=== PATIENT | female | born 1975 | race American Indian/Alaskan Native ===

== ENCOUNTER 2018-03-31 17:55 | Emergency (ER) | payer OTHER ==
--- OUTSIDE RECORDS SUMMARY | 2018-03-31 17:56 | XMS REPORT ---
:1975 Author Organization eClinicalWorks Care Team Providers Name Role Phone Yony Rouse Provider Role Unavailable Allergies No Known Allergies Problems Problem Type Condition Code Onset Dates Condition Status Assessment HTN (hypertension), benign I10 Active Problem Cyst of ovary, unspecified N83.209 Active laterality Problem Adult BMI 36.0-36.9 kg/sq m Z68.36 Active Problem HTN (hypertension), benign I10 Active Problem Depression with anxiety F41.8 Active Problem Low back pain M54.5 Active Problem Other chronic pain G89.29 Active Problem Primary osteoarthritis involving M15.0 Active multiple joints Problem Irregular menstrual cycle N92.6 Active Problem Endometriosis N80.9 Active Assessment Encounter for screening mammogram Z12.31 Active for malignant neoplasm of breast Assessment Other chronic pain G89.29 Active Assessment Primary osteoarthritis involving M15.0 Active multiple joints Assessment Low back pain M54.5 Active Assessment Irregular menstrual cycle N92.6 Active Assessment Depression with anxiety F41.8 Active Assessment Adult BMI 36.0-36.9 kg/sq m Z68.36 Active Assessment Medicare annual wellness visit, Z00.00 Active initial Medications Medication Code Code Instructions Start End Status Dosage System Date Date Potassium [facility] 72563286817 Oral Active 1 tab Meloxicam [facility] 21614343098 15 MG Orally Active 1 tablet Once a day Adipex-P [facility] 89368546882 37.5 MG Orally Active 1 tablet Once a day Hydrochlorothiazide [facility] 64307848373 25 MG Orally Active 1 tablet Once a day in the morning Prozac [facility] 35028242571 20 MG Orally Active 1 capsule Once a day in the morning cyclobenzaprine [facility] 0 20 once daily Active 1 tablet Hydrocodone [facility] [address]-25 Active not Bitartrate defined Vitamin B12 [facility] 67537-10419 Active not defined Vitamin C [facility] 32704030379 500 MG Orally Active not defined Results No Known Results Summary Purpose eClinicalWorks Submission
--- OUTSIDE RECORDS SUMMARY | 2018-03-31 17:56 | XMS REPORT ---
:1975 Author Organization eClinicalWorks Care Team Providers Name Role Phone Marina Rodgers Provider Role Unavailable Allergies, Adverse Reactions, Alerts Substance Reaction Event Type penicillin Info Not Available Drug Allergy Amoxicillin Info Not Available Drug Allergy Sulfa Info Not Available Drug Allergy Problems Problem Type Condition Code Onset Dates Condition Status Assessment Irregular menstrual cycle N92.6 Active Problem Cyst of ovary, unspecified N83.209 Active laterality Problem Adult BMI 36.0-36.9 kg/sq m Z68.36 Active Assessment Encounter for screening mammogram Z12.31 Active for malignant neoplasm of breast Problem HTN (hypertension), benign I10 Active Problem Depression with anxiety F41.8 Active Problem Low back pain M54.5 Active Problem Other chronic pain G89.29 Active Problem Primary osteoarthritis involving M15.0 Active multiple joints Problem Irregular menstrual cycle N92.6 Active Problem Endometriosis N80.9 Active Medications Medication Code Code Instructions Start End Status Dosage System Date Date Meloxicam [facility] 45590691791 15 MG Orally Active 1 tablet Once a day Vitamin C [facility] 78069843864 500 MG Orally Active not defined Potassium [facility] 36178902748 Oral Active 1 tab cyclobenzaprine [place] 0 20 once daily Active 1 tablet Adipex-P [facility] 85278932435 37.5 MG Orally Active 1 tablet Once a day Hydrochlorothiazide [facility] 07191207900 25 MG Orally Active 1 tablet Once a day in the morning Prozac [facility] 03149986161 20 MG Orally Active 1 capsule Once a day in the morning Vitamin B12 [facility] 98512-83159 Active not defined Hydrocodone [facility] [address]-22 Active not Bitartrate defined Results No Known Results Summary Purpose eClinicalWorks Submission
--- OUTSIDE RECORDS SUMMARY | 2018-03-31 17:56 | XMS REPORT ---
:1975 Author Organization eClinicalWorks Care Team Providers Name Role Phone Rouse, [facility] Provider Role Unavailable Allergies, Adverse Reactions, Alerts [...] N92.6 Active Problem Endometriosis N80.9 Active Assessment Adult BMI 36.0-36.9 kg/sq m Z68.36 Active Assessment Primary osteoarthritis involving M15.0 Active multiple joints Assessment Other chronic pain G89.29 Active Assessment Low back pain M54.5 Active Assessment Irregular menstrual cycle N92.6 Active Assessment Depression with anxiety F41.8 Active Medications Medication Code Code Instructions Start End Status Dosage System Date Date Hydrocodone [facility] [address]-51 Active not Bitartrate defined Potassium [facility] 71513927204 Oral Active 1 tab Vitamin C [facility] 16614390627 500 MG Orally Active not defined cyclobenzaprine [facility] 0 20 once daily Active 1 tablet Hydrochlorothiazide [facility] 99366400452 25 MG Orally Active 1 tablet Once a day in the morning Prozac [facility] 74442761410 20 MG Orally January 01, Active 1 capsule Once a day 2018 in the morning Adipex-P [facility] 74606546147 37.5 MG Orally Active 1 tablet Once a day Vitamin B12 [facility] [address]995-[address]52 Active not defined Meloxicam [facility] 97808032170 15 MG Orally Active 1 tablet Once a day Results No Known Results Summary Purpose eClinicalWorks Submission
--- OUTSIDE RECORDS SUMMARY | 2018-03-31 17:57 | XMS REPORT ---
:1975 Author Organization eClinicalWorks Care Team Providers Name Role Phone Marina Rodgers Provider Role Unavailable Allergies, Adverse Reactions, Alerts Substance Reaction Event Type penicillin Info Not Available Drug Allergy Amoxicillin Info Not Available Drug Allergy Sulfa Info Not Available Drug Allergy Problems Problem Type Condition Code Onset Dates Condition Status Problem Irregular menstrual cycle N92.6 Active Problem HTN (hypertension), benign I10 Active Problem Depression with anxiety F41.8 Active Problem Abnormal uterine bleeding (AUB) N93.9 Active Problem Nabothian cyst N88.8 Active Problem Polyp at cervical os N84.1 Active Problem Cyst of ovary, unspecified N83.209 Active laterality Problem Low back pain M54.5 Active Problem Adult BMI 36.0-36.9 kg/sq m Z68.36 Active Problem Primary osteoarthritis involving M15.0 Active multiple joints Assessment Polyp at cervical os N84.1 Active Assessment Abnormal uterine bleeding (AUB) N93.9 Active Assessment Encounter for Depo-Provera Z30.42 Active contraception Problem Other chronic pain G89.29 Active Assessment Nabothian cyst N88.8 Active Problem Endometriosis N80.9 Active Medications Medication Code Code Instructions Start End Status Dosage System Date Date Meloxicam [facility] 37324326321 15 MG Orally Active 1 tablet Once a day Potassium ND 82566312664 Oral Active 1 tab Vitamin C [facility] 15098937575 500 MG Orally Active not defined Hydrocodone [facility] [address]-07 Active not Bitartrate defined cyclobenzaprine ND 0 20 once daily Active 1 tablet Vitamin B12 [facility] 65463-76699 Active not defined Prozac [facility] 83301790787 20 MG Orally Active 1 capsule Once a day in the morning Hydrochlorothiazide [facility] 49271234917 25 MG Orally Active 1 tablet Once a day in the morning Adipex-P [facility] 13690539056 37.5 MG Orally Active 1 tablet Once a day Results No Known Results Summary Purpose eClinicalWorks Submission
--- NOTE | 2018-03-31 18:35 | EDPHYS ---
Physician Documentation [facility] Name: Carmen Villanueva Age: 42 yrs Sex: Female : 1975 Arrival Date: 03/31/2018 Time: 17:56 Bed 13 Private MD: ED Physician Abhishek Paulino HPI: 03/31 18:33 This 42 yrs old Female presents to ER via Ambulatory with complaints of pm1 Abrasion To Leg. 18:33 The patient has a laceration related to: swimming occurred outdoors, and there are no pm1 complicating factors. The laceration(s) is(are) located on the palmar aspect of right forearm and right rojas. Onset: The symptoms/episode began/occurred yesterday. Associated signs and symptoms: Pertinent negatives: deformity, heavy bleeding, numbness distal to injury, suspected foreign body, fever. The patient has not recently seen a physician. Patient was swimming at the beach and sustained scratches to right forearm, right rojas, and right toes on unknown object in the water. No lacerations present. MANAGER ENTRY: 18:07 LMP 03/27/2018 aj Historical: - Allergies: 18:07 Sulfa (Sulfonamide Antibiotics); aj 18:07 PENICILLINS; aj - Home Meds: 18:07 Hydrocodone-Acetaminophen Oral [Active]; Adipex-P oral oral [Active]; aj Hydrochlorothiazide Oral [Active]; Flexeril Oral [Active]; Prozac Oral [Active]; - PMHx: 18:07 Depression; Chronic pain; aj - PSHx: 18:07 None; aj - Immunization history:: Adult Immunizations up to date. - Social history:: Smoking status: Patient/guardian denies using tobacco. - Ebola Screening: : Patient negative for fever greater than or equal to 101.5 degrees Fahrenheit, and additional compatible Ebola Virus Disease symptoms Patient denies exposure to infectious person Patient denies travel to an Ebola-affected area in the 21 days before illness onset No symptoms or risks identified at this time. ROS: 18:33 Constitutional: Negative for fever, chills, and weight loss, Eyes: Negative for injury, pm1 pain, redness, and discharge, ENT: Negative for injury, pain, and discharge, Neck: Negative for injury, pain, and swelling, Cardiovascular: Negative for chest pain, palpitations, and edema, Respiratory: Negative for shortness of breath, cough, wheezing, and pleuritic chest pain, Abdomen/GI: Negative for abdominal pain, nausea, vomiting, diarrhea, and constipation, Back: Negative for injury and pain. 18:33 MS/extremity: Positive for abrasion, of the right rojsa and palmar aspect of right forearm and right toes. 18:33 Skin: Positive for abrasion(s), as noted on extremity examination. Exam: 18:33 Constitutional: This is a well developed, well nourished patient who is awake, alert, pm1 and in no acute distress. Head/Face: Normocephalic, atraumatic. Neck: Trachea midline, no thyromegaly or masses palpated, and no cervical lymphadenopathy. Supple, full range of motion without nuchal rigidity, or vertebral point tenderness. No Meningismus. Chest/axilla: Normal chest wall appearance and motion. Nontender with no deformity. No lesions are appreciated. Cardiovascular: Regular rate and rhythm with a normal S1 and S2. No gallops, murmurs, or rubs. No pulse deficits. Respiratory: Lungs have equal breath sounds bilaterally, clear to auscultation and percussion. No rales, rhonchi or wheezes noted. No increased work of breathing, no retractions or nasal flaring. Abdomen/GI: Soft, non-tender, with normal bowel sounds. No distension or tympany. No guarding or rebound. No evidence of tenderness throughout. Back: No spinal tenderness. No costovertebral tenderness. Full range of motion. 18:33 MS/ Extremity: Pulses equal, no cyanosis. Neurovascular intact. Full, normal range of motion. 18:33 Skin: Appearance: normal except for affected area, injury, abrasion(s), small abrasion noted, of the right rojas and palmar aspect of right forearm and 4th and 5th right toes. 18:33 Neuro: Orientation: is normal, Motor: moves all fours. Vital Signs: 18:07 BP 130 / 78; Pulse 99; Resp 20; Temp 98.3; Pulse Ox 99% on R/A; Weight 81.19 kg; Height aj 5 ft. 2 in. (157.48 cm); 18:30 BP 113 / 73; Pulse 87; Resp 19; Pulse Ox 99% on R/A; rb1 18:07 Body Mass Index 32.74 (81.19 kg, 157.48 cm) jayda MDM: 18:30 Patient medically screened. pm1 18:33 Data reviewed: vital signs. Data interpreted: Pulse oximetry: on room air is 99 %. pm1 Interpretation: normal. Counseling: I had a detailed discussion with the patient and/or guardian regarding: the historical points, exam findings, and any diagnostic results supporting the discharge/admit diagnosis, the need for outpatient follow up, to return to the emergency department if symptoms worsen or persist or if there are any questions or concerns that arise at home. Administered Medications: 18:48 Drug: Tetanus-Diphtheria Toxoid Adult 0.5 ml {Keno Attendant: [employer]. Exp: rb1 05/23/2019. Lot #: [id number]. } Route: IM; Site: right deltoid; 18:59 Follow up: Response: No adverse reaction rb1 18:49 Drug: Doxycycline 100 mg Route: PO; rb1 18:58 Follow up: Response: No adverse reaction; Medication administered at discharge. rb1 Disposition: 03/31/18 18:34 Discharged to Home. Impression: Abrasion, right lower leg, Abrasion of right upper arm, Abrasion, right lesser toe(s). - Condition is Stable. - Discharge Instructions: Abrasion. - Prescriptions for Doxycycline Hyclate 100 mg Oral Tablet - take 1 tablet by ORAL route every 12 hours; 20 tablet. - Medication Reconciliation Form, Thank You Letter, Antibiotic Education form. - Follow up: Emergency Department; When: As needed; Reason: Worsening of condition. Follow up: Private Physician; When: 2 - 3 days; Reason: Recheck today's complaints, Continuance of care, Re-evaluation by your physician. - Problem is new. - Symptoms have improved. Addendum: 04/04/2018 08:02 Co-signature as Attending Physician, Abhishek Paulino MD I agree with the assessment and k dr plan of care. Signatures: Deandra Pedersen RN Abhishek Hatfield MD MD [facility] Yamile Torres RN RN rb1 Sriram Dobson NP AUTOMATIC STACKER pm1 Corrections: (The following items were deleted from the chart) 03/31 19:00 18:34 03/31/2018 18:34 Discharged to Home. Impression: Abrasion, right lower leg; rb1 Abrasion of right upper arm; Abrasion, right lesser toe(s). Condition is Stable. Forms are Medication Reconciliation Form, Thank You Letter, Antibiotic Education, Prescription Opioid Use. Follow up: Emergency Department; When: As needed; Reason: Worsening of condition. Follow up: Private Physician; When: 2 - 3 days; Reason: Recheck today's complaints, Continuance of care, Re-evaluation by your physician. Problem is new. Symptoms have improved. pm1
--- NOTE | 2018-03-31 18:35 | ER ---
Nurse's Notes [facility] Name: Carmen Villanueva Age: 42 yrs Sex: Female : 1975 Arrival Date: 03/31/2018 Time: 17:56 Bed 13 Private MD: Diagnosis: Abrasion, right lower leg;Abrasion of right upper arm;Abrasion, right lesser toe(s) Presentation: 03/31 18:04 Presenting complaint: Patient states: Was swimming at the beach yesterday when her leg aj was cut on something in the water. Patient reports feeling her leg go through something under the sand and then had scratches to right rojas and foot. Transition of care: patient was not received from another setting of care. Complicating Factors: There are no complicating factors for this patient. Onset of symptoms was March 30, 2018. Risk Assessment: Do you want to hurt yourself or someone else? Patient reports no desire to harm self or others. Initial Sepsis Screen: Does the patient meet any 2 criteria? No. Patient's initial sepsis screen is negative. Does the patient have a suspected source of infection? No. Patient's initial sepsis screen is negative. Care prior to arrival: None. 18:04 Method Of Arrival: Ambulatory aj 18:04 Acuity: PEGGY 5 aj Triage Assessment: 18:07 General: Appears in no apparent distress. comfortable, Behavior is calm, cooperative, aj appropriate for age. Pain: Complains of pain in right leg. Neuro: Level of Consciousness is awake, alert, obeys commands, Oriented to person, place, time, situation, Appropriate for age. Respiratory: Airway is patent Respiratory effort is even, unlabored, Respiratory pattern is regular, symmetrical. Derm: Skin is intact, is healthy with good turgor, Skin is pink, warm \T\ dry. normal. Injury Description: Laceration sustained to right rojas. CHILD SUPPORT SPECIALIST: 18:07 LMP 03/27/2018 aj Historical: - Allergies: 18:07 Sulfa (Sulfonamide Antibiotics); aj 18:07 PENICILLINS; aj - Home Meds: 18:07 Hydrocodone-Acetaminophen Oral [Active]; Adipex-P oral oral [Active]; aj Hydrochlorothiazide Oral [Active]; Flexeril Oral [Active]; Prozac Oral [Active]; - PMHx: 18:07 Depression; Chronic pain; aj - PSHx: 18:07 None; aj - Immunization history:: Adult Immunizations up to date. - Social history:: Smoking status: Patient/guardian denies using tobacco. - Ebola Screening: : Patient negative for fever greater than or equal to 101.5 degrees Fahrenheit, and additional compatible Ebola Virus Disease symptoms Patient denies exposure to infectious person Patient denies travel to an Ebola-affected area in the 21 days before illness onset No symptoms or risks identified at this time. Screenin:09 Abuse screen: Denies threats or abuse. Nutritional screening: No deficits noted. rb1 Tuberculosis screening: No symptoms or risk factors identified. Fall Risk None identified. Assessment: 18:09 General: Appears in no apparent distress. comfortable, Behavior is calm, cooperative, rb1 Reports chills for 12-24 hours, Denies fever. Pain: Complains of pain in right rojas Pain currently is 3 out of 10 on a pain scale. Pain began 1 day ago. Neuro: Level of Consciousness is awake, alert, obeys commands, Oriented to person, place, time, situation. Cardiovascular: Capillary refill < 3 seconds is brisk in bilateral fingers. Respiratory: Airway is patent Respiratory effort is even, unlabored, Respiratory pattern is regular, symmetrical. GI: No signs and/or symptoms were reported involving the gastrointestinal system. : No signs and/or symptoms were reported regarding the genitourinary system. Derm: Skin is pink, warm \T\ dry. Musculoskeletal: Range of motion: intact in all extremities. Injury Description: Abrasion sustained to right rojas, right forearm, and fifth toe on right foot is scabbed, was sustained 1 day ago. 18:09 Injury Description: Laceration is not bleeding. rb1 18:45 Reassessment: Patient appears in no apparent distress at this time. No changes from rb1 previously documented assessment. Vital Signs: 18:07 BP 130 / 78; Pulse 99; Resp 20; Temp 98.3; Pulse Ox 99% on R/A; Weight 81.19 kg; Height aj 5 ft. 2 in. (157.48 cm); 18:30 BP 113 / 73; Pulse 87; Resp 19; Pulse Ox 99% on R/A; rb1 18:07 Body Mass Index 32.74 (81.19 kg, 157.48 cm) ED Course: 17:56 Patient arrived in ED. as 18:05 Triage completed. aj 18:07 Arm band placed on right wrist. Patient placed in an exam room. aj 18:08 Yamile Torres, RN is Primary Nurse. rb1 18:09 Patient has correct armband on for positive identification. Call light in reach. Side rb1 rails up X 1. Pulse ox on. NIBP on. Warm blanket given. 18:24 Sriram Dobson NP is PHCP. pm1 18:24 Abhishek Paulino MD is Attending Physician. pm1 18:59 No provider procedures requiring assistance completed. Patient did not have IV access rb1 during this emergency room visit. Administered Medications: 18:48 Drug: Tetanus-Diphtheria Toxoid Adult 0.5 ml {Diamond Cutter: [employer]. Exp: rb1 05/23/2019. Lot #: [id number]. } Route: IM; Site: right deltoid; 18:59 Follow up: Response: No adverse reaction rb1 18:49 Drug: Doxycycline 100 mg Route: PO; rb1 18:58 Follow up: Response: No adverse reaction; Medication administered at discharge. rb1 Outcome: 18:34 Discharge ordered by . pm1 18:59 Discharged to home ambulatory. rb1 18:59 Condition: stable 18:59 Discharge instructions given to patient, Instructed on discharge instructions, follow up and referral plans. medication usage, Demonstrated understanding of instructions, follow-up care, medications, Prescriptions given X 1. 19:00 Patient left the ED. rb1 Signatures: Deandra Pedersen RN RN Mary Obregon Rebecca, LELO RN rb1 Sriram Dobson NP HOSPITALITY HOUSE SUPERVISOR pm1
[2018-03-31] MEDS ORDERED: DOXYCYCLINE 100 MG CAP PO ONE (18:49)
[2018-03-31] MEDS ORDERED: TETANUS & DIPHTHERIA TOX,ADULT 0.5 ML VIAL ONE (18:49)
== END 2018-03-31 19:00 | disposition home or self-care (01) ==
LOC: ER 17:55
DX: S90.414A Abrasion, right lesser toe(s), initial encounter (principal); S40.811A Abrasion of right upper arm, initial encounter; Y93.11 Activity, swimming; Y92.89 Other specified places as the place of occurrence of the external cause; Z23 Encounter for immunization; Z88.0 Allergy status to penicillin; Z88.2 Allergy status to sulfonamides; F32.9 Major depressive disorder, single episode, unspecified
CPT/HCPCS: 90714; 99283

== ENCOUNTER 2018-04-03 20:08 | Emergency (ER) | payer OTHER ==
--- OUTSIDE RECORDS SUMMARY | 2018-04-03 20:10 | XMS REPORT ---
:1975 Author Organization eClinicalWorks Care Team Providers Name Role Phone Rouse, [facility] Provider Role Unavailable Allergies, Adverse Reactions, Alerts [...] End Status Dosage System Date Date Hydrocodone [facility] [address]-71 Active not Bitartrate defined Potassium [facility] 71226926394 Oral Active 1 tab Vitamin C [facility] 09032056047 500 MG Orally Active not defined cyclobenzaprine NDC 0 20 once daily Active 1 tablet Hydrochlorothiazide [facility] 19046586749 25 MG Orally Active 1 tablet Once a day in the morning Prozac [facility] 72447759672 20 MG Orally January 01, Active 1 capsule Once a day 2018 in the morning Adipex-P [facility] 52664652469 37.5 MG Orally Active 1 tablet Once a day Vitamin B12 [facility] 51744-64417 Active not defined Meloxicam [facility] 66494429671 15 MG Orally Active 1 tablet Once a day Results No Known Results Summary Purpose eClinicalWorks Submission
--- OUTSIDE RECORDS SUMMARY | 2018-04-03 20:10 | XMS REPORT ---
[...] End Status Dosage System Date Date Potassium [facility] 57608109929 Oral Active 1 tab Meloxicam [facility] 24255935653 15 MG Orally Active 1 tablet Once a day Adipex-P [facility] 52442606700 37.5 MG Orally Active 1 tablet Once a day Hydrochlorothiazide [facility] 19519133126 25 MG Orally Active 1 tablet Once a day in the morning Prozac [facility] 68055657974 20 MG Orally Active 1 capsule Once a day in the morning cyclobenzaprine [facility] 0 20 once daily Active 1 tablet Hydrocodone [facility] [address]-36 Active not Bitartrate defined Vitamin B12 [facility] [address]759 Active not defined Vitamin C [facility] 10053530163 500 MG Orally Active not defined Results No Known Results Summary Purpose eClinicalWorks Submission
--- OUTSIDE RECORDS SUMMARY | 2018-04-03 20:10 | XMS REPORT ---
[...] End Status Dosage System Date Date Meloxicam [facility] 04725998343 15 MG Orally Active 1 tablet Once a day Potassium ND 18008072066 Oral Active 1 tab Vitamin C [facility] 42704595634 500 MG Orally Active not defined Hydrocodone [facility] [address]-66 Active not Bitartrate defined cyclobenzaprine ND 0 20 once daily Active 1 tablet Vitamin B12 [facility] 08587-63882 Active not defined Prozac [facility] 15696660775 20 MG Orally Active 1 capsule Once a day in the morning Hydrochlorothiazide [facility] 43079221430 25 MG Orally Active 1 tablet Once a day in the morning Adipex-P [facility] 89135900787 37.5 MG Orally Active 1 tablet Once a day Results No Known Results Summary Purpose eClinicalWorks Submission
--- OUTSIDE RECORDS SUMMARY | 2018-04-03 20:10 | XMS REPORT ---
[...] End Status Dosage System Date Date Meloxicam [facility] 38369655035 15 MG Orally Active 1 tablet Once a day Vitamin C [facility] 58042574934 500 MG Orally Active not defined Potassium [facility] 77249496872 Oral Active 1 tab cyclobenzaprine ND 0 20 once daily Active 1 tablet Adipex-P [facility] 80145877747 37.5 MG Orally Active 1 tablet Once a day Hydrochlorothiazide [facility] 54551621965 25 MG Orally Active 1 tablet Once a day in the morning Prozac [facility] 51274404466 20 MG Orally Active 1 capsule Once a day in the morning Vitamin B12 [facility] [address] Active not defined Hydrocodone [facility] [address]-71 Active not Bitartrate defined Results No Known Results Summary Purpose eClinicalWorks Submission
--- NOTE | 2018-04-03 20:31 | ER ---
Nurse's Notes [facility] Name: Carmen Villanueva Age: 42 yrs Sex: Female : 1975 Arrival Date: 04/03/2018 Time: 20:09 Bed 27 Private MD: Diagnosis: Unspecified otitis externa, left ear Presentation: 04/03 20:13 Presenting complaint: Patient states: 'I came in the other day for a cut on my leg. aj1 They gave me a tetanus shot and doxycycline. The next day I woke up with a sore throat and now its moved on to my ears. The left one keeps getting worse and worse" Reports ear pain for the past 3 days. Patient has not seen her PHCP regarding this complaint. Reports chills. Transition of care: patient was not received from another setting of care. Onset of symptoms was March 30, 2018. Risk Assessment: Do you want to hurt yourself or someone else? Patient reports no desire to harm self or others. Initial Sepsis Screen: Does the patient meet any 2 criteria? Systolic BP < 90 mmHg. No. Patient's initial sepsis screen is negative. Does the patient have a suspected source of infection? No. Patient's initial sepsis screen is negative. Care prior to arrival: None. 20:13 Method Of Arrival: Ambulatory aj1 20:13 Acuity: PEGGY 4 aj1 Triage Assessment: 20:15 General: Appears in no apparent distress. uncomfortable, Behavior is calm, cooperative, aj1 appropriate for age. Pain: Complains of pain in left ear Pain currently is 10 out of 10 on a pain scale. EENT: Reports ear pain. Neuro: Level of Consciousness is awake, alert, obeys commands. Cardiovascular: Patient's skin is warm and dry. Respiratory: Airway is patent Respiratory effort is even, unlabored, Respiratory pattern is regular, symmetrical. 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 - Social history:: Smoking status: Patient/guardian denies using tobacco. - Ebola Screening: : Patient denies travel to an Ebola-affected area in the 21 days before illness onset. Screenin:27 Abuse screen: Denies threats or abuse. Denies injuries from another. Nutritional mg2 screening: No deficits noted. Tuberculosis screening: No symptoms or risk factors identified. Fall Risk None identified. Assessment: 20:47 General: Appears in no apparent distress. comfortable, Behavior is calm, cooperative. mg2 Pain: Complains of pain in left ear Pain does not radiate. Pain currently is 8 out of 10 on a pain scale. Quality of pain is described as aching, Pain began gradually, Is intermittent. EENT: Ear canal w/ drainage noted from left ear. Vital Signs: 20:15 BP 119 / 68; Pulse 104; Resp 18; Temp 98.1; Pulse Ox 100% on R/A; Weight 81.19 kg (R); aj1 Height 5 ft. 2 in. (157.48 cm) (R); Pain 10/10; 20:15 Body Mass Index 32.74 (81.19 kg, 157.48 cm) aj1 ED Course: 20:09 Patient arrived in ED. es 20:14 Triage completed. aj1 20:15 Arm band placed on Patient placed in an exam room. EKG completed in triage. Results aj1 shown to MD. EKG completed in triage. Results shown to MD. 20:21 Sriram Dobson NP is PHCP. pm1 20:21 Raleigh Perla MD is Attending Physician. pm1 20:26 Erlin Stearns, LELO is Primary Nurse. mg2 20:45 Patient has correct armband on for positive identification. mg2 20:46 No provider procedures requiring assistance completed. Patient did not have IV access mg2 during this emergency room visit. Administered Medications: 20:44 Drug: [place] 10 mg-325 mg 1 tabs Route: PO; mg2 20:48 Follow up: Response: No adverse reaction; Medication administered at discharge. mg2 20:45 Not Given (Physician Discretion): Cortisporin Drops 4 drops Otic once; Insert earwick mg2 to left ear Outcome: 20:30 Discharge ordered by . pm1 20:48 Discharged to home ambulatory, with family. mg2 20:48 Condition: good 20:48 Discharge instructions given to patient, family, Instructed on discharge instructions, follow up and referral plans. medication usage, Demonstrated understanding of instructions, follow-up care, medications, Prescriptions given X 1. 20:50 Patient left the ED. mg2 Signatures: Kamala Skinner RN RN aj1 Juliette Castellano Patrick, NP AGRICULTURAL ECONOMIST pm1 Erlin Stearns RN RN mg2
--- NOTE | 2018-04-03 20:31 | EDPHYS ---
Physician Documentation [facility] Name: Carmen Villanueva Age: 42 yrs Sex: Female : 1975 Arrival Date: 04/03/2018 Time: 20:09 Bed 27 Private MD: ED Physician Raleigh Perla HPI: 04/03 20:30 This 42 yrs old Female presents to ER via Ambulatory with complaints of pm1 Left Ear Pain. 20:30 The patient presents with pain, swelling. The complaints affect the left ear. Onset: pm1 The symptoms/episode began/occurred today. Modifying factors: The symptoms are alleviated by nothing, the symptoms are aggravated by pulling on ears. Associated signs and symptoms: Pertinent negatives: fever, sore throat. Severity of symptoms: in the emergency department the symptoms are worse. The patient has experienced similar episodes in the past, a few times. The patient has been recently seen at the [facility] Emergency Department, last week, for unrelated complaints, abrasions while swimming in salt water. patient swimming in 4 days ago. 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 - Social history:: Smoking status: Patient/guardian denies using tobacco. - Ebola Screening: : Patient denies travel to an Ebola-affected area in the 21 days before illness onset. ROS: 20:30 Constitutional: Negative for fever, chills, and weight loss, Eyes: Negative for injury, pm1 pain, redness, and discharge. 20:30 Neck: Negative for injury, pain, and swelling, Cardiovascular: Negative for chest pain, palpitations, and edema, Respiratory: Negative for shortness of breath, cough, wheezing, and pleuritic chest pain, Abdomen/GI: Negative for abdominal pain, nausea, vomiting, diarrhea, and constipation, Back: Negative for injury and pain, MS/Extremity: Negative for injury and deformity, Skin: Negative for injury, rash, and discoloration, Neuro: Negative for headache, weakness, numbness, tingling, and seizure. 20:30 ENT: Positive for ear pain, Negative for drainage from ear(s), sore throat. Exam: 20:30 Constitutional: This is a well developed, well nourished patient who is awake, alert, pm1 and in no acute distress. Head/Face: Normocephalic, atraumatic. Eyes: Pupils equal round and reactive to light, extra-ocular motions intact. Lids and lashes normal. Conjunctiva and sclera are non-icteric and not injected. Cornea within normal limits. Periorbital areas with no swelling, redness, or edema. 20:30 Neck: Trachea midline, no thyromegaly or masses palpated, and no cervical lymphadenopathy. Supple, full range of motion without nuchal rigidity, or vertebral point tenderness. No Meningismus. Chest/axilla: Normal chest wall appearance and motion. Nontender with no deformity. No lesions are appreciated. Cardiovascular: Regular rate and rhythm with a normal S1 and S2. No gallops, murmurs, or rubs. Normal PMI, no JVD. No pulse deficits. Respiratory: Lungs have equal breath sounds bilaterally, clear to auscultation and percussion. No rales, rhonchi or wheezes noted. No increased work of breathing, no retractions or nasal flaring. Back: No spinal tenderness. No costovertebral tenderness. Full range of motion. Skin: Warm, dry with normal turgor. Normal color with no rashes, no lesions, and no evidence of cellulitis. MS/ Extremity: Pulses equal, no cyanosis. Neurovascular intact. Full, normal range of motion. 20:30 ENT: External ear(s): are unremarkable, Ear canal(s): swelling, that is moderate, of the left canal, TM's: not visable, swelling in left ear, Examination of the other ear shows no obvious abnormality, Nose: is normal, no drainage, no edema, no erythema, Mouth: is normal, no gum abnomalities, no lip abnormalities, no mucosal abnormalities, no tongue abnormalities. 20:30 Neuro: Orientation: is normal, Motor: moves all fours. Vital Signs: 20:15 BP 119 / 68; Pulse 104; Resp 18; Temp 98.1; Pulse Ox 100% on R/A; Weight 81.19 kg (R); aj1 Height 5 ft. 2 in. (157.48 cm) (R); Pain 10/10; 20:15 Body Mass Index 32.74 (81.19 kg, 157.48 cm) aj1 MDM: 20:21 Patient medically screened. pm1 20:29 Data reviewed: vital signs. pm1 20:29 Data interpreted: Pulse oximetry: on room air is 100 %. Interpretation: normal. pm1 Counseling: I had a detailed discussion with the patient and/or guardian regarding: the historical points, exam findings, and any diagnostic results supporting the discharge/admit diagnosis, the need for outpatient follow up, to return to the emergency department if symptoms worsen or persist or if there are any questions or concerns that arise at home. Administered Medications: 20:44 Drug: [place] 10 mg-325 mg 1 tabs Route: PO; mg2 20:48 Follow up: Response: No adverse reaction; Medication administered at discharge. mg2 20:45 Not Given (Physician Discretion): Cortisporin Drops 4 drops Otic once; Insert earwick mg2 to left ear Disposition: 04/04 04:20 Co-signature as Attending Physician, Raleigh Perla MD I agree with the assessment and ps1 plan of care. Disposition: 04/03/18 20:30 Discharged to Home. Impression: Unspecified otitis externa, left ear. - Condition is Stable. - Discharge Instructions: Ear Drops, Adult, Otitis Externa. - Prescriptions for Cortisporin 3.5- 10,000-1 mg/mL-unit/mL-% Otic solution - instill 4 drop by OTIC route every 6 hours for 10 days Dispense suspension; 10 milliliter. Tylenol- Codeine #3 300-30 mg Oral Tablet - take 2 tablets by ORAL route every 6 hours As needed; 20 tablet. - Medication Reconciliation Form, Thank You Letter, Antibiotic Education, Prescription Opioid Use form. - Follow up: Emergency Department; When: As needed; Reason: Worsening of condition. Follow up: Private Physician; When: 2 - 3 days; Reason: Recheck today's complaints, Continuance of care, Re-evaluation by your physician. - Problem is new. - Symptoms have improved. Signatures: Kamala Skinner RN RN aj1 Sriram Dobson DIETETIC TECHNICIAN REGISTERED DIETETIC TECHNICIAN REGISTERED pm1 Raleigh Perla MD MD ps1 Erlin Stearns RN RN mg2 Corrections: (The following items were deleted from the chart) 04/03 20:50 20:30 04/03/2018 20:30 Discharged to Home. Impression: Unspecified otitis externa, left mg2 ear. Condition is Stable. Forms are Medication Reconciliation Form, Thank You Letter, Antibiotic Education, Prescription Opioid Use. Follow up: Emergency Department; When: As needed; Reason: Worsening of condition. Follow up: Private Physician; When: 2 - 3 days; Reason: Recheck today's complaints, Continuance of care, Re-evaluation by your physician. Problem is new. Symptoms have improved. pm1
[2018-04-03] MEDS ORDERED: NEOMY/POLY/HC 1% OTIC DROPS ONE (20:35)
[2018-04-03] MEDS ORDERED: HYDROCODONE/APAP 10/325 TAB ONE (20:39)
== END 2018-04-03 20:50 | disposition home or self-care (01) ==
LOC: ER 20:08
DX: H60.92 Unspecified otitis externa, left ear (principal); F32.9 Major depressive disorder, single episode, unspecified; Z88.0 Allergy status to penicillin; Z88.2 Allergy status to sulfonamides
CPT/HCPCS: 99283

== ENCOUNTER 2018-08-24 17:11 | Emergency (ER) | payer OTHER ==
--- OUTSIDE RECORDS SUMMARY | 2018-08-24 17:13 | XMS REPORT ---
[...] End Status Dosage System Date Date Meloxicam [facility] 33394316241 15 MG Orally Active 1 tablet Once a day Potassium ND 63669767387 Oral Active 1 tab Vitamin C [facility] 79003883408 500 MG Orally Active not defined Hydrocodone [facility] [address]-67 Active not Bitartrate defined cyclobenzaprine ND 0 20 once daily Active 1 tablet Vitamin B12 [facility] [address] Active not defined Prozac [facility] 33309930979 20 MG Orally Active 1 capsule Once a day in the morning Hydrochlorothiazide [facility] 78115716696 25 MG Orally Active 1 tablet Once a day in the morning Adipex-P [facility] 81738709669 37.5 MG Orally Active 1 tablet Once a day Results No Known Results Summary Purpose eClinicalWorks Submission
--- OUTSIDE RECORDS SUMMARY | 2018-08-24 17:13 | XMS REPORT ---
:1975 Author Organization eClinicalWorks Care Team Providers Name Role Phone [facility], [facility] Provider Role Unavailable Allergies, Adverse Reactions, [...] End Status Dosage System Date Date Hydrocodone [facility] [address]-52 Active not Bitartrate defined Potassium [facility] 51374032303 Oral Active 1 tab Vitamin C [facility] 92483726685 500 MG Orally Active not defined cyclobenzaprine NDC 0 20 once daily Active 1 tablet Hydrochlorothiazide [facility] 21810344231 25 MG Orally Active 1 tablet Once a day in the morning Prozac [facility] 55536004408 20 MG Orally January 01, Active 1 capsule Once a day 2018 in the morning Adipex-P [facility] 90466251855 37.5 MG Orally Active 1 tablet Once a day Vitamin B12 [facility] [address] Active not defined Meloxicam [facility] 77844681880 15 MG Orally Active 1 tablet Once a day Results No Known Results Summary Purpose eClinicalWorks Submission
--- OUTSIDE RECORDS SUMMARY | 2018-08-24 17:13 | XMS REPORT ---
:1975 Author Organization eClinicalWorks Care Team Providers Name Role Phone Marina Rodgers Provider Role Unavailable Allergies No Known Allergies Problems Problem Type Condition Code Onset Dates Condition Status Problem Irregular menstrual cycle N92.6 Active Problem HTN (hypertension), benign I10 Active Problem Depression with anxiety F41.8 Active Problem Other chronic pain G89.29 Active Problem Endometriosis N80.9 Active Problem Abnormal uterine bleeding (AUB) N93.9 Active Problem Nabothian cyst N88.8 Active Problem Polyp at cervical os N84.1 Active Problem Cyst of ovary, unspecified N83.209 Active laterality Problem Low back pain M54.5 Active Problem Adult BMI 36.0-36.9 kg/sq m Z68.36 Active Problem Primary osteoarthritis involving M15.0 Active multiple joints Medications No Known Medications Results No Known Results Summary Purpose eClinicalWorks Submission
--- OUTSIDE RECORDS SUMMARY | 2018-08-24 17:13 | XMS REPORT ---
:1975 Author Organization eClinicalWorks Care Team Providers Name Role Phone Marina Rodgers Provider Role Unavailable Allergies, Adverse Reactions, Alerts Substance Reaction Event Type penicillin Info Not Available Drug Allergy Amoxicillin Info Not Available Drug Allergy Sulfa Info Not Available Drug Allergy Problems Problem Type Condition Code Onset Dates Condition Status Problem Other chronic pain G89.29 Active Problem Irregular menstrual cycle N92.6 Active Problem Endometriosis N80.9 Active Problem Abnormal uterine bleeding (AUB) N93.9 Active Problem Polyp at cervical os N84.1 Active Problem Encounter for Depo-Provera Z30.42 Active contraception Problem Low back pain M54.5 Active Problem Depression with anxiety F41.8 Active Problem Nabothian cyst N88.8 Active Problem Adult BMI 36.0-36.9 kg/sq m Z68.36 Active Problem HTN (hypertension), benign I10 Active Problem Cyst of ovary, unspecified N83.209 Active laterality Assessment Encounter for Depo-Provera Z30.42 Active contraception Problem Primary osteoarthritis involving M15.0 Active multiple joints Medications Medication Code Code Instructions Start End Status Dosage System Date Date Adipex-P [facility] 79872589394 37.5 MG Orally Active 1 tablet Once a day Vitamin B12 [facility] [address] Active not defined Potassium [facility] 09935660828 Oral Active 1 tab Meloxicam [facility] 12179234145 15 MG Orally Active 1 tablet Once a day cyclobenzaprine NDC 0 20 once daily Active 1 tablet Hydrochlorothiazide [facility] 05583641602 25 MG Orally Active 1 tablet Once a day in the morning Prozac [facility] 75707202667 20 MG Orally Active 1 capsule Once a day in the morning Vitamin C [facility] 49123859951 500 MG Orally Active not defined Hydrocodone [facility] [address]-41 Active not Bitartrate defined Results No Known Results Summary Purpose eClinicalWorks Submission
--- OUTSIDE RECORDS SUMMARY | 2018-08-24 17:13 | XMS REPORT ---
:1975 Author Organization eClinicalWorks Care Team Providers Name Role Phone Nasim Yony Provider Role Unavailable Allergies, Adverse Reactions, Alerts Substance Reaction Event Type penicillin Info Not Available Drug Allergy Amoxicillin Info Not Available Drug Allergy Sulfa Info Not Available Drug Allergy Problems Problem Type Condition Code Onset Dates Condition Status Problem Primary osteoarthritis involving M15.0 Active multiple joints Problem Endometriosis N80.9 Active Problem Other chronic pain G89.29 Active Problem Encounter for Depo-Provera Z30.42 Active contraception Assessment Adult BMI 36.0-36.9 kg/sq m Z68.36 Active Problem Nabothian cyst N88.8 Active Assessment Irregular menstrual cycle N92.6 Active Assessment Other chronic pain G89.29 Active Problem Vitamin D deficiency disease E55.9 Active Problem Depression with anxiety F41.8 Active Problem Irregular menstrual cycle N92.6 Active Problem Abnormal uterine bleeding (AUB) N93.9 Active Problem Polyp at cervical os N84.1 Active Assessment Depression with anxiety F41.8 Active Assessment Fatigue, unspecified type R53.83 Active Assessment Primary osteoarthritis involving M15.0 Active multiple joints Assessment Low back pain M54.5 Active Problem Low back pain M54.5 Active Problem HTN (hypertension), benign I10 Active Assessment HTN (hypertension), benign I10 Active Problem Adult BMI 36.0-36.9 kg/sq m Z68.36 Active Assessment Vitamin D deficiency disease E55.9 Active Problem Cyst of ovary, unspecified N83.209 Active laterality Medications Medication Code Code Instructions Start End Status Dosage System Date Date Hydrochlorothiazide [place] 78403846608 25 MG Orally Active 1 tablet Once a day in the morning Vitamin B12 [facility] [address] Active not defined cyclobenzaprine NDC 0 20 once daily Active 1 tablet Hydrochlorothiazide ND 00912621149 25 MG Orally Active 1 tablet Once a day in the morning Potassium ND 68045458666 Oral Active 1 tab Vitamin C [facility] 05773251188 500 MG Orally Active not defined Meloxicam ND 86121419733 15 MG Orally Active 1 tablet Once a day Hydrocodone [facility] [address]-79 Active not Bitartrate defined Prozac [facility] 19680797350 20 MG Orally Active 1 capsule Once a day in the morning Adipex-P [facility] 01337319060 37.5 MG Orally Active 1 tablet Once a day Prozac [facility] 92484726900 20 MG Orally Active 1 capsule Once a day in the morning Results No Known Results Summary Purpose eClinicalWorks Submission
--- OUTSIDE RECORDS SUMMARY | 2018-08-24 17:13 | XMS REPORT ---
[...] End Status Dosage System Date Date Potassium [facility] 14751611136 Oral Active 1 tab Meloxicam [facility] 18013442774 15 MG Orally Active 1 tablet Once a day Adipex-P [facility] 25825321653 37.5 MG Orally Active 1 tablet Once a day Hydrochlorothiazide [facility] 00695482400 25 MG Orally Active 1 tablet Once a day in the morning Prozac [facility] 93129753175 20 MG Orally Active 1 capsule Once a day in the morning cyclobenzaprine [facility] 0 20 once daily Active 1 tablet Hydrocodone [facility] [address]-24 Active not Bitartrate defined Vitamin B12 [facility] 36[address]99 Active not defined Vitamin C [facility] 64739741238 500 MG Orally Active not defined Results No Known Results Summary Purpose eClinicalWorks Submission
--- OUTSIDE RECORDS SUMMARY | 2018-08-24 17:13 | XMS REPORT ---
[...] End Status Dosage System Date Date Meloxicam [facility] 92952822675 15 MG Orally Active 1 tablet Once a day Vitamin C [facility] 37877184779 500 MG Orally Active not defined Potassium [facility] 33166721424 Oral Active 1 tab cyclobenzaprine [place] 0 20 once daily Active 1 tablet Adipex-P [facility] 31646152296 37.5 MG Orally Active 1 tablet Once a day Hydrochlorothiazide [facility] 28090257038 25 MG Orally Active 1 tablet Once a day in the morning Prozac [facility] 38715945888 20 MG Orally Active 1 capsule Once a day in the morning Vitamin B12 [facility] [address]38 Active not defined Hydrocodone [facility] [address]-99 Active not Bitartrate defined Results No Known Results Summary Purpose eClinicalWorks Submission
--- OUTSIDE RECORDS SUMMARY | 2018-08-24 17:13 | XMS REPORT ---
:1975 Author Organization eClinicalWorks Care Team Providers Name Role Phone Nasim Yony Provider Role Unavailable Allergies No Known Allergies [...] of ovary, unspecified N83.209 Active laterality Problem Primary osteoarthritis involving M15.0 Active multiple joints Medications Medication Code Code Instructions Start End Status Dosage System Date Date Hydrochlorothiazide [facility] 57608219950 25 MG Orally Active 1 tablet Once a day in the morning Prozac [facility] 60598372518 20 MG Orally Active 1 capsule Once a day in the morning Results No Known Results Summary Purpose eClinicalWorks Submission
[2018-08-24] MEDS ORDERED: KETOROLAC 30 MG/ML INJ ONE (17:50)
[2018-08-24] MEDS ORDERED: ONDANSETRON 4 MG (ODT) TAB ONE (17:51)
--- NOTE | 2018-08-24 18:03 | ER ---
Nurse's Notes [facility] Name: Carmen Villanueva Age: 43 yrs Sex: Female : 1975 Arrival Date: 08/24/2018 Time: 17:13 Bed 16 Private MD: Yony Rouse Diagnosis: Headache-chronic Presentation: 08/24 17:29 Presenting complaint: Patient states: HEADACHE x2 DAYS. Transition of care: patient was bp not received from another setting of care. Onset of symptoms is unknown. Risk Assessment: Do you want to hurt yourself or someone else? Patient reports no desire to harm self or others. Initial Sepsis Screen: Does the patient meet any 2 criteria? No. Patient's initial sepsis screen is negative. Does the patient have a suspected source of infection? No. Patient's initial sepsis screen is negative. Care prior to arrival: None. 17:29 Method Of Arrival: Ambulatory bp 17:29 Acuity: PEGGY 3 bp Triage Assessment: 17:30 Headache History: Denies prior headaches. General: Appears in no apparent distress. bp uncomfortable, Behavior is cooperative, appropriate for age, anxious. Pain: Complains of pain in head Pain currently is 8 out of 10 on a pain scale. Pain began 2-3 days ago. Also complains of nausea. EENT: No deficits noted. Neuro: Level of Consciousness is awake, alert, obeys commands, Oriented to person, place, time, situation, Appropriate for age. Cardiovascular: No deficits noted. Respiratory: Airway is patent Respiratory effort is even, unlabored, Respiratory pattern is regular, symmetrical. GI: No signs and/or symptoms were reported involving the gastrointestinal system. : No signs and/or symptoms were reported regarding the genitourinary system. Derm: No deficits noted. Musculoskeletal: Circulation, motion, and sensation intact. Range of motion: intact in all extremities. 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 - Social history:: Smoking status: Patient/guardian denies using tobacco. - Ebola Screening: : Patient negative for fever greater than or equal to 101.5 degrees Fahrenheit, and additional compatible Ebola Virus Disease symptoms Patient denies exposure to infectious person Patient denies travel to an Ebola-affected area in the 21 days before illness onset No symptoms or risks identified at this time. Screenin:33 Abuse screen: Denies threats or abuse. Denies injuries from another. Nutritional bp screening: No deficits noted. Tuberculosis screening: No symptoms or risk factors identified. Fall Risk None identified. Assessment: 17:33 General: SEE TRIAGE NOTE. Pain: Complains of pain in top of head and head. bp 18:22 Reassessment: PT D/C HOME AMBULATORY WITH FAMILY, DX WITH CHRONIC BOOGIE. bp Vital Signs: 17:30 BP 109 / 65; Pulse 111; Resp 16 S; Temp 97.8; Pulse Ox 100% ; Weight 77.11 kg; Height 5 iw ft. 2 in. (157.48 cm); 18:22 BP 113 / 71; Pulse 97; Resp 16; Pulse Ox 100% ; bp 17:30 Body Mass Index 31.09 (77.11 kg, 157.48 cm) iw [place] Coma Score: 17:33 Eye Response: spontaneous(4). Verbal Response: oriented(5). Motor Response: obeys snw commands(6). Total: 15. ED Course: 17:13 Patient arrived in ED. mr 17:14 Yony Rouse DO is Private Physician. mr 17:21 Humberto Peraza, RN is Primary Nurse. bp 17:29 Triage completed. bp 17:30 Arm band placed on. bp 17:33 Patient has correct armband on for positive identification. Bed in low position. Call bp light in reach. Side rails up X2. Adult w/ patient. 17:36 Dane Reid PA is PHCP. jr8 17:36 Raleigh Perla MD is Attending Physician. jr8 17:37 PHCP role handed off by Dane Reid PA snw 17:37 Mayra Regalado FNP-C is PHCP. snw 18:01 Yony Rouse DO is Referral Physician. snw 18:22 No provider procedures requiring assistance completed. Patient did not have IV access bp during this emergency room visit. Administered Medications: 17:45 Drug: Zofran 4 mg Route: PO; bp 18:24 Follow up: Response: Nausea is decreased bp 17:45 Drug: TORadol 60 mg Route: IM; Site: left gluteus; bp 18:23 Follow up: Response: Pain is decreased bp Outcome: 18:01 Discharge ordered by MD. ahumada 18:23 Discharged to home ambulatory, with family. bp 18:23 Condition: stable 18:23 Discharge instructions given to patient, Instructed on discharge instructions, follow up and referral plans. medication usage, Demonstrated understanding of instructions, follow-up care, medications, Prescriptions given X 1. 18:24 Patient left the ED. bp Signatures: Mayra Regalado, TYPESETTING SUPERVISOR-C TYPESETTING SUPERVISOR-Csnw Myla Caba mr Josselin King, RN RN iw Dane Reid PA PA jr8 Humberto Peraza, LELO RN bp Corrections: (The following items were deleted from the chart) 17:49 17:30 BP 109 / 65; Pulse 111bpm; Resp 100bpm; Pulse Ox 100%; Temp 97.8F; 77.11 kg; iw Height 5 ft. 2 in.; BMI: 31.0; bp
--- NOTE | 2018-08-24 18:03 | EDPHYS ---
Physician Documentation [facility] Name: Carmen Villanueva Age: 43 yrs Sex: Female : 1975 Arrival Date: 08/24/2018 Time: 17:13 Bed 16 Private MD: Yony Rouse ED Physician Raleigh Perla HPI: 08/24 17:29 This 43 yrs old Female presents to ER via Unassigned with complaints of snw Headache, Nausea. 17:29 The patient complains of pain to the top of head. The patient describes the headache as snw nausea. Onset: The symptoms/episode began/occurred 3 month(s) ago, and became persistent. Associated signs and symptoms: Pertinent positives: nausea. Severity of symptoms: At its worst the pain was mild, moderate. Headache History: The patient has had previous headaches and this one is similar to previous episodes. The patient has experienced similar episodes in the past, chronically. pt sees Dr. Gunn/pain mgmt, has had multiple spinal injections. states she has been taking fioricet and it really works but she just took her last one. 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 - Social history:: Smoking status: Patient/guardian denies using tobacco. - Ebola Screening: : Patient negative for fever greater than or equal to 101.5 degrees Fahrenheit, and additional compatible Ebola Virus Disease symptoms Patient denies exposure to infectious person Patient denies travel to an Ebola-affected area in the 21 days before illness onset No symptoms or risks identified at this time. ROS: 17:34 Constitutional: Negative for fever, chills, and weight loss, Eyes: Negative for injury, snw pain, redness, and discharge, ENT: Negative for injury, pain, and discharge, Neck: Negative for injury, pain, and swelling, Cardiovascular: Negative for chest pain, palpitations, and edema, Respiratory: Negative for shortness of breath, cough, wheezing, and pleuritic chest pain, Abdomen/GI: Negative for abdominal pain, vomiting, diarrhea, and constipation, + nausea Back: Negative for injury and pain, : Negative for injury, bleeding, discharge, and swelling, MS/Extremity: Negative for injury and deformity, Skin: Negative for injury, rash, and discoloration. 17:34 Neuro: Positive for headache. Exam: 17:35 Constitutional: This is a well developed, well nourished patient who is awake, alert, snw and in no acute distress. Head/Face: Normocephalic, atraumatic. Eyes: Pupils equal round and reactive to light, extra-ocular motions intact. Lids and lashes normal. Conjunctiva and sclera are non-icteric and not injected. Cornea within normal limits. Periorbital areas with no swelling, redness, or edema. ENT: Nares patent. No nasal discharge, no septal abnormalities noted. Tympanic membranes are normal and external auditory canals are clear. Oropharynx with no redness, swelling, or masses, exudates, or evidence of obstruction, uvula midline. Mucous membranes moist. Neck: Trachea midline, no thyromegaly or masses palpated, and no cervical lymphadenopathy. Supple, full range of motion without nuchal rigidity, or vertebral point tenderness. No Meningismus. Chest/axilla: Normal chest wall appearance and motion. Nontender with no deformity. No lesions are appreciated. Cardiovascular: Regular rate and rhythm with a normal S1 and S2. No gallops, murmurs, or rubs. Normal PMI, no JVD. No pulse deficits. Respiratory: Lungs have equal breath sounds bilaterally, clear to auscultation and percussion. No rales, rhonchi or wheezes noted. No increased work of breathing, no retractions or nasal flaring. Abdomen/GI: Soft, non-tender, with normal bowel sounds. No distension or tympany. No guarding or rebound. No evidence of tenderness throughout. Back: No spinal tenderness. No costovertebral tenderness. Full range of motion. Skin: Warm, dry with normal turgor. Normal color with no rashes, no lesions, and no evidence of cellulitis. MS/ Extremity: Pulses equal, no cyanosis. Neurovascular intact. Full, normal range of motion. Neuro: Awake and alert, GCS 15, oriented to person, place, time, and situation. Cranial nerves II-XII grossly intact. Motor strength 5/5 in all extremities. Sensory grossly intact. Cerebellar exam normal. Normal gait. Psych: Awake, alert, with orientation to person, place and time. Behavior, mood, and affect are within normal limits. Vital Signs: 17:30 BP 109 / 65; Pulse 111; Resp 16 S; Temp 97.8; Pulse Ox 100% ; Weight 77.11 kg; Height 5 iw ft. 2 in. (157.48 cm); 18:22 BP 113 / 71; Pulse 97; Resp 16; Pulse Ox 100% ; bp 17:30 Body Mass Index 31.09 (77.11 kg, 157.48 cm) iw [place] Coma Score: 17:33 Eye Response: spontaneous(4). Verbal Response: oriented(5). Motor Response: obeys snw commands(6). Total: 15. MDM: 17:33 Data reviewed: vital signs, nurses notes. Data interpreted: Pulse oximetry: on room air snw is 100 %. Counseling: I had a detailed discussion with the patient and/or guardian regarding: the historical points, exam findings, and any diagnostic results supporting the discharge/admit diagnosis, lab results, the need for outpatient follow up, for definitive care. 17:36 Patient medically screened. jr8 08/24 17:21 Order name: Urine Culture snw 08/24 18:20 Order name: Urine Dipstick--Ancillary (enter results) eb 08/24 18:20 Order name: Urine --Ancillary (enter results) eb Administered Medications: 17:45 Drug: Zofran 4 mg Route: PO; bp 18:24 Follow up: Response: Nausea is decreased bp 17:45 Drug: TORadol 60 mg Route: IM; Site: left gluteus; bp 18:23 Follow up: Response: Pain is decreased bp Disposition: 17:26 Medication refill in ED for fioricet. snw 18:46 Co-signature as Attending Physician, Raleigh Perla MD Available for consultation at ps1 all times . Disposition: 08/24/18 18:01 Discharged to Home. Impression: Headache - chronic. - Condition is Stable. - Discharge Instructions: Analgesic Rebound Headaches, Rehydration, Adult. - Prescriptions for Zofran 4 mg Oral Tablet - take 1 tablet by ORAL route every 12 hours As needed; 6 tablet. - Medication Reconciliation Form, Thank You Letter, Antibiotic Education, Prescription Opioid Use form. - Follow up: Yony Rouse DO; When: Tomorrow; Reason: Recheck today's complaints, Continuance of care, Re-evaluation by your physician. Follow up: Emergency Department; When: As needed; Reason: Worsening of condition. Signatures: Dispatcher [employer] EDMS Mayra Regalado, WINCHMAN/CRANE OPERATOR-C WINCHMAN/CRANE OPERATOR-Csnw Dane Reid PA PA jr8 Humberto Peraza, LELO RN bp Raleigh Perla MD MD ps1 Corrections: (The following items were deleted from the chart) 18:00 17:21 Urine Test ordered. snw snw 18:00 17:21 Urine Dipstick-Ancillary ordered. snw snw 18:24 18:01 08/24/2018 18:01 Discharged to Home. Impression: Headache - chronic. Condition is bp Stable. Forms are Medication Reconciliation Form, Thank You Letter, Antibiotic Education, Prescription Opioid Use. Follow up: Yony Rouse; When: Tomorrow; Reason: Recheck today's complaints, Continuance of care, Re-evaluation by your physician. Follow up: Emergency Department; When: As needed; Reason: Worsening of condition. snw
[2018-08-24 19:18] LABS: Urine Blood NEGATIVE (NEG); Urine Glucose NEGATIVE (NEG); Urine Protein NEGATIVE (NEG); Urine Specific Gravity 1.015 (1.005-1.030)
== END 2018-08-24 18:24 | disposition home or self-care (01) ==
LOC: ER 17:11
DX: R51 Headache (principal); G89.29 Other chronic pain; I10 Essential (primary) hypertension; Z79.899 Other long term (current) drug therapy
CPT/HCPCS: 81003; 81025; 96372; 99283

== ENCOUNTER → 2019-10-30 | Day surgery (SDC) | payer OTHER ==
[2019-10-29 13:15] LABS: Specific Gravity 1.015 (1.005-1.030)
[~2019-10-30] MED LIST: CEFAZOLIN/SWI 2gm 2 GM/20 ML SYR ONE; FENTANYL CITR 100 MCG/2 ML ONE; HYDROCODONE/APAP 5/325 MG TAB ONE; HYDROCODONE/APAP 5/325 MG TAB PO ONE; KETOROLAC 30 MG/ML INJ ONE; LIDOCAINE 2% MPF 5 ML VIAL ONE; MIDAZOLAM HCL 2 MG/2 ML INJ ONE; PROMETHAZINE INJ 25 MG/ML AMP ONE; Ringers Lactate 1,000 ML IV ONE; propofoL 200 MG/20 ML VIAL IV ONE
--- OUTSIDE RECORDS SUMMARY | 2019-10-30 09:20 | XMS REPORT ---
:1975 Author Organization [employer] Care Team Providers Name Role Phone Gonzalo Valle Provider Role Unavailable Allergies, Adverse Reactions, Alerts Substance Reaction Event Type penicillin Info Not Available Drug Allergy Amoxicillin Info Not Available Drug Allergy Sulfa Info Not Available Drug Allergy Problems Problem Type Condition Code Onset Dates Condition Status Problem Low back pain M54.5 Active Problem Adult BMI 36.0-36.9 kg/sq m Z68.36 Active Problem Cyst of ovary, unspecified N83.209 Active laterality Problem Screening mammogram, encounter for Z12.31 Active Assessment Polyp at cervical os N84.1 Active Problem Vitamin D deficiency disease E55.9 Active Assessment Adult BMI 36.0-36.9 kg/sq m Z68.36 Active Assessment Irregular menstrual cycle N92.6 Active Problem Encounter for gynecological Z01.419 Active examination without abnormal finding Problem Polyp at cervical os N84.1 Active Problem Nabothian cyst N88.8 Active Problem Encounter for Depo-Provera Z30.42 Active contraception Problem Abnormal uterine bleeding (AUB) N93.9 Active Assessment Encounter for gynecological Z01.419 Active examination without abnormal finding Assessment Abnormal uterine bleeding (AUB) N93.9 Active Assessment Encounter for Depo-Provera Z30.42 Active contraception Problem Other chronic pain G89.29 Active Problem Endometriosis N80.9 Active Problem HTN (hypertension), benign I10 Active Problem Irregular menstrual cycle N92.6 Active Problem Primary osteoarthritis involving M15.0 Active multiple joints Problem Depression with anxiety F41.8 Active Medications Medication Code Code Instructions Start End Status Dosage System Date Date BusPIRone HCl ND 99591830049 5 MG Orally Active 1 tablet Three times a day Vitamin B12 [facility] [address] Active not defined Prozac [facility] 97798023991 40 MG Orally Active 1 Once a day capsule in the morning Depo-Provera ND 56218160345 150 MG/ML Active 1 ml Intramuscular cyclobenzaprine NDC 0 20 once daily Active 1 tablet Adipex-P [facility] 29924818484 37.5 MG Orally Active 1 tablet Once a day BusPIRone HCl [facility] 92983024538 5 MG Orally Active 1 tablet Three times a day Potassium [facility] 34687075732 Oral Active 1 tab Vitamin C [facility] 67928185812 500 MG Orally Active not defined Hydrochlorothiazide [facility] 38180638436 25 MG Orally Active 1 tablet Once a day in the morning Hydrocodone [facility] [address]-76 Active not Bitartrate defined Meloxicam [facility] 04862232382 15 MG Orally Active 1 tablet Once a day Potassium Chloride [facility] 39503612110 20 MEQ Orally Active 1 Once a day capsule Results No Known Results Summary Purpose eClinicalWorks Submission
[2019-10-30] MEDS: MEPERIDINE HCL 50 MG/ML ONE ×2 (11:10→11:19)
[2019-10-30] MEDS: HYDROMORPHONE HCL 1 MG/ML INJ ONE ×2 (11:27→11:32)
[2019-10-30 12:28] VITALS: BP 105/54; TEMP 97.6; O2SAT 98
--- NOTE | 2019-10-30 21:16 | OP ---
Date of Procedure: 10/30/2019 Surgeon: Tatiana Thibodeaux MD Sheet Rocker: None. Preoperative Diagnosis: Menorrhagia with irregular bleeding, (AUB-A/O) dysmenorrhea. Postoperative Diagnosis: Menorrhagia with irregular bleeding, (AUB-A/O) dysmenorrhea. Procedures Performed: Hysteroscopy, endometrial ablation with NovaSure. Anesthesia: General with LMA. Specimens: None. Complications: None. Drains: None. Estimated Blood Loss: Minimal. Findings: The cavity length was 5 cm. No intracavitary masses were seen. Cavity with 4.7 cm power setting for the ablation 129 jerez and time 1 minute 43 seconds. Patient is a 44-year-old with irreg ular heavy bleeding, dysmenorrhea as well. A transvaginal ultrasound was performed, thickened endome trium was noted. Hysteroscopy done in the office and endometrial sampling was performed. Benign pat hology on the polyp and no atypia or malignancy was noted. No hyperplasia. Description Of Procedure: Patient was counseled on her options for treatment, which included medical treatment options including IUD, surgical treatment options including an ablation. If the pain is r ecurrent or if she fails these methods, then hysterectomy. She has used Depo and it has not worked, declines oral contraceptives. Consented for this, did not want to have an IUD so consented and broug ht to the OR. 2 g of Ancef were given. She has allergy to penicillin and sulfa, but has apparently tolerated some cephalosporins in the past. She tolerated her Ancef well. After she was taken back to OR, placed in a supine fashion on the operating table general anesthesia given, placed in a dorsal lithotomy position. After prep x3 with Betadine was done, speculum was su gege to expose the cervix and the anterior lip grasped with Allis clamps. SlimLine diagnostic hystero scope was used to perform direct hysteroscopy into the uterine cavity. Cavity was empty, no masses. Endometrium unremarkable. Direct measurements of the uterine cavity 8.5 cm cervical length 3.5, rickie culated cavity length 5 cm. Then the NovaSure device was opened up since there was no cavity distort ion. This was deployed after being primed. Cavity integrity test was done with plugging in the occl uder at the external os. The test was passed. Then the device was enabled. The cycle was uninterru pted for 1 minute 43 seconds. The device was carefully undeployed, hysteroscopy was performed to rin se out the cavity and then visualize. There was an excellent burn from the coronal line 1 to the oth er in the fundus as well as both the anterior and posterior salas until the internal os. After the c avity was completely rinsed out, the scope was removed. Instrument, needle, and sponge counts were d one after the instruments were removed. Patient tolerated the procedure well. She will follow up [facility] in 1 month. FAYE/CHETAN Voice ID: [id number] Report ID: [id number]
== END | disposition home or self-care (01) ==
LOC: OR 09:17
PROVIDERS: ATTEND Obstetrics & Gynecology
PROC: 0U5B8ZZ Destruction of Endometrium, Via Natural or Artificial Opening Endoscopic (ICD-10-PCS; principal; 2019-10-30 10:30)
DX: N92.1 Excessive and frequent menstruation with irregular cycle (principal); N94.6 Dysmenorrhea, unspecified; N39.3 Stress incontinence (female) (male); R39.15 Urgency of urination; I10 Essential (primary) hypertension; Z88.0 Allergy status to penicillin; Z88.2 Allergy status to sulfonamides; Z87.891 Personal history of nicotine dependence; Z80.49 Family history of malignant neoplasm of other genital organs; Z80.3 Family history of malignant neoplasm of breast; Z80.42 Family history of malignant neoplasm of prostate; Z80.0 Family history of malignant neoplasm of digestive organs; Z83.3 Family history of diabetes mellitus; Z82.3 Family history of stroke; Z82.49 Family history of ischemic heart disease and other diseases of the circulatory system
CPT/HCPCS: 81025; 58563; J2704; J2550; J2250; J3010; J2175; J1170; J0690; J7120